=== PATIENT | male | born 1965 | race Caucasian/White ===

== ENCOUNTER 2018-07-21 11:52 | Emergency (ER) | payer OTHER ==
--- NOTE | 2018-07-21 12:49 | EDPHY ---
H & P Time Seen by Provider: 07/21/18 12:48 HPI/ROS: Chief complaint. Chest pain HPI. Patient is a 52-year-old male presents emergency department with chest pain that began 3 hr ago. He has no symptoms now. He described as central chest tightness and brief twinges to left arm but he also has twinges to legs. He felt slightly short of breath. He occasionally has a sense of heart skipping. He has had increased stress at work and he is a single father with 2 children. His symptoms were better with walking and deep breathing and again now has resolved. He does have a history of GERD which causes occasionally similar symptoms. He has been having similar symptoms over the past few weeks. He has no fever cough. No unusual leg pain or swelling. He runs 5 miles 2 times per week and has no symptoms. No history of heart problems, hypertension , diabetes. He has diet controlled cholesterol. ROS 10 systems were reviewed and negative with the exception of the elements mentioned in the history of present illness Past Medical/Surgical History: GERD and anxiety, diverticulitis Family history he thinks that mom has had minor heart attacks Social History: Single, nonsmoker, no alcohol Smoking Status: Former smoker Physical Exam: General Appearance: Alert well-developed male mild distress vital signs are stable Eyes: Pupils equal and round no pallor or injection. ENT, Mouth: Mucous membranes are moist. Respiratory: There are no retractions, lungs are clear to auscultation. Cardiovascular: Regular rate and rhythm. Gastrointestinal: Abdomen is soft and nontender, no masses, bowel sounds normal. Neurological: Awake and alert, sensory and motor exams grossly normal. Skin: Warm and dry, no rashes. Musculoskeletal: Neck is supple nontender. Extremities symmetrical, full range of motion. Psychiatric: Patient is oriented X 3, there is no agitation. Constitutional: Initial Vital Signs Temperature (C) 36.9 C 07/21/18 11:56 Heart Rate 88 07/21/18 11:56 Respiratory Rate 16 07/21/18 11:56 Blood Pressure 130/98 H 07/21/18 11:56 O2 Sat (%) 95 07/21/18 11:56 O2 Delivery Mode Room Air Allergies/Adverse Reactions: No Known Allergies Allergy (Unverified 07/21/18 11:56) Home Medications: Medication Instructions Recorded Diazepam 07/21/18 Omeprazole 07/21/18 Medical Decision Making - Diagnostics EKG Interpretation: EKG interpreted by me shows normal sinus rhythm normal interval and axis. QRS is normal there is no significant ST elevation or depression. No arrhythmia. The rate is 86 Repeat EKG shows normal sinus rhythm with borderline left axis deviation. QRS is otherwise normal. Again no evidence of arrhythmia or ST elevation or depression. Rate is 69 Imaging Results: Imaging Impressions Chest X-Ray 07/21/18 12:34 Impression: Mild airways disease. No pneumonia. Chest x-ray interpreted by me is normal Procedures: IV normal saline, monitor ED Course/Re-evaluation: Re-evaluation 1:35 p.m.. Patient and I discussed laboratory evaluation, treatment plan. We discussed repeat EKG and troponin. He expresses understanding and agreed Re-evaluation again at 2:25 p.m.. Patient is stable and without symptoms. Again we discussed treatment plan including criteria for return importance of follow-up and further evaluation. He expresses understanding and agreement Differential Diagnosis: This appears to be stress and anxiety. I have considered acute coronary syndrome. Patient's heart score is two. He gets 1 for age and 1 for mother having a possible NH. Otherwise no risk factors. - Data Points Laboratory Results: Laboratory Results 07/21/18 12:40 07/21/18 12:40 07/21/18 07/21/18 07/21/18 14:02 12:49 12:40 WBC RBC Hgb Hct MCV MCH MCHC RDW Plt Count MPV Neut % (Auto) Lymph % (Auto) [place] % (Auto) Eos % (Auto) Baso % (Auto) Nucleat RBC Rel Count Absolute Neuts (auto) Absolute Lymphs (auto) Absolute Monos (auto) Absolute Eos (auto) Absolute Basos (auto) Absolute Nucleated RBC Immature Gran % Immature Gran # Sodium 139 mEq/L mEq/L (135-145) Potassium 4.2 mEq/L mEq/L (3.5-5.2) Chloride 105 mEq/L mEq/L (97-110) Carbon Dioxide 26 mEq/l mEq/l (22-31) Anion Gap 8 mEq/L mEq/L (6-14) BUN 15 mg/dL mg/dL (7-23) Creatinine 0.9 mg/dL mg/dL (0.7-1.3) Estimated GFR > 60 Glucose 118 mg/dL H mg/dL (70-100) Calcium 9.9 mg/dL mg/dL (8.5-10.4) POC Troponin I 0.00 ng/mL ng/mL 0.00 ng/mL ng/mL (0.00-0.08) (0.00-0.08) 07/21/18 12:40 WBC 4.67 10^3/uL 10^3/uL (3.80-9.50) RBC 5.52 10^6/uL 10^6/uL (4.40-6.38) Hgb 17.0 g/dL g/dL (13.7-17.5) Hct 48.2 % % (40.0-51.0) MCV 87.3 fL fL (81.5-99.8) MCH 30.8 pg pg (27.9-34.1) MCHC 35.3 g/dL g/dL (32.4-36.7) RDW 12.3 % % (11.5-15.2) Plt Count 293 10^3/uL 10^3/uL (150-400) MPV 9.0 fL fL (8.7-11.7) Neut % (Auto) 55.3 % % (39.3-74.2) Lymph % (Auto) 32.1 % % (15.0-45.0) [place] % (Auto) 9.6 % % (4.5-13.0) Eos % (Auto) 1.7 % % (0.6-7.6) Baso % (Auto) 0.9 % % (0.3-1.7) Nucleat RBC Rel Count 0.0 % % (0.0-0.2) Absolute Neuts (auto) 2.58 10^3/uL 10^3/uL (1.70-6.50) Absolute Lymphs (auto) 1.50 10^3/uL 10^3/uL (1.00-3.00) Absolute Monos (auto) 0.45 10^3/uL 10^3/uL (0.30-0.80) Absolute Eos (auto) 0.08 10^3/uL 10^3/uL (0.03-0.40) Absolute Basos (auto) 0.04 10^3/uL 10^3/uL (0.02-0.10) Absolute Nucleated RBC 0.00 10^3/uL 10^3/uL (0-0.01) Immature Gran % 0.4 % % (0.0-1.1) Immature Gran # 0.02 10^3/uL 10^3/uL (0.00-0.10) Sodium Potassium Chloride Carbon Dioxide Anion Gap BUN Creatinine Estimated GFR Glucose Calcium POC Troponin I Point of Care Test Results: Chemistry 07/21/18 07/21/18 14:02 12:49 POC Troponin I 0.00 ng/mL ng/mL 0.00 ng/mL ng/mL (0.00-0.08) (0.00-0.08) Departure - Departure Disposition: Home, Routine, Self-Care Clinical Impression: Chest pain Qualifiers: Chest pain type: unspecified Qualified Code(s): R07.9 - Chest pain, unspecified Condition: Good Instructions: Chest Pain (ED) Additional Instructions: Easy activity next 1-2 days. Return for worsening chest discomfort or trouble breathing Follow-up with Cardiology in the next 1-2 days for further evaluation. Call them today for follow-up appointment Referrals: Alen Torres MD [Primary Care Provider] - As per Instructions Kunal March MD [Medical Doctor] - 2-3 days, call for appt.
[2018-07-21 12:57] LABS: PLATELET COUNT 293 10^3/uL (150-400)
[2018-07-21 14:43] VITALS: BP 110/74
--- NOTE | 2018-07-21 20:46 | CPEKG ---
Test Reason : OPEN Blood Pressure : / mmHG Vent. Rate : 086 BPM Atrial Rate : 089 BPM P-R Int : 149 ms QRS Dur : 090 ms QT Int : 351 ms P-R-T Axes : 074 053 059 degrees QTc Int : 420 ms Sinus rhythm Confirmed by Jl Serrano ([id number]) on 07/21/2018 8:45:55 PM Referred By: PHYSICIAN ED Confirmed By:Jl Serrano
--- NOTE | 2018-07-21 20:46 | CPEKG ---
Test Reason : OPEN Blood Pressure : / mmHG Vent. Rate : 069 BPM Atrial Rate : 071 BPM P-R Int : 153 ms QRS Dur : 093 ms QT Int : 393 ms P-R-T Axes : 039 -15 021 degrees QTc Int : 421 ms Sinus rhythm Borderline left axis deviation Confirmed by Kameron Serrano ([id number]) on 07/21/2018 8:45:51 PM Referred By: KAMERON SERRANO Confirmed By:Kameron Serrano
== END 2018-07-21 14:39 | disposition home or self-care (01) ==
DX: R07.9 Chest pain, unspecified (principal); K21.9 Gastro-esophageal reflux disease without esophagitis; F41.9 Anxiety disorder, unspecified
CPT/HCPCS: 84484-ER